=== PATIENT | male | born 1970 | race American Indian/Alaskan Native ===

== ENCOUNTER 2017-11-14 10:36 | Outpatient (CLI) | payer MEDICARE ==
--- NOTE | 2017-11-15 08:47 | Magnetic Resonance Report ---
MRI OF THE BRAIN WITHOUT CONTRAST: HISTORY: Testicular hypofunction PROCEDURE: Multiplanar, multisequence MR imaging of the brain without IV contrast was performed. Thin collimation noncontrast imaging through the sella turcica. FINDINGS: Minimal nonspecific chronic white matter changes are identified. Otherwise, the brain parenchyma signal intensity and its mckenzie white interface are within normal limits. No evidence for acute ischemia, hemorrhage or mass. No chronic infarct or extra-axial fluid collection. The midline structures are central. The basal cisterns are patent. Normal ventricular size. The orbital cavities and sella turcica demonstrate no abnormality. The pituitary gland is normal size and contour. The infundibulum and hypothalamus area are unremarkable. Please note evaluation of pituitary microadenoma is limited on this exam without IV gadolinium. The visualized paranasal sinuses and mastoid air cells are well aerated. IMPRESSION: Unremarkable non-enhanced MRI of the brain. Mild nonspecific chronic white matter changes. No sellar abnormality detected.
== END 2017-11-14 10:37 | disposition home or self-care (01) ==
LOC: EDSEX 10:36 → MRI 10:36
PROVIDERS: ATTEND Urology
DX: E29.1 Testicular hypofunction (principal); R90.82 White matter disease, unspecified
CPT/HCPCS: 70551